=== PATIENT | male | born 1945 | race Caucasian/White ===

== ENCOUNTER 2018-12-06 16:05 | Emergency (ER) | payer MEDICAID, MEDICARE ==
[2018-12-06] MEDS ORDERED: DIPHTH/TETANUS/ACEL. PERTUSSIS IM ONE (16:10)
--- NOTE | 2018-12-06 16:16 | ER Report ---
History and Physical Time Seen By MD: 16:04 Hx. of Stated Complaint: FALL HPI/ROS CHIEF COMPLAINT: Fell HISTORY OF PRESENT ILLNESS: Pt had been walking in town and was stumbling and witness states that they say him fall off the sidewalk and hit his head on the asphault. No Known loc. Police and ems were called. Pt was repetitive to police and was suggested to go to the hospital. Pt on ed arrival is in a collar. Pt c/o had hematoma to back of his head and skin tears to left elbow. Pt does not know his last tetnus shot. Pt is on 3 medications but states "i dont know what they are or what they are for". Pt has etoh on breath. Pt states he had 3 drinks "i am not drunk". Pt does c/o of some left shoulder pain but states that is chronic. Pt denies any headache. no numbness. REVIEW OF SYSTEMS: Constitutional: No fever, no chills. Eyes: No discharge. ENT: No sore throat. Cardiovascular: No chest pain, no palpitations. Respiratory: No cough, no shortness of breath. Gastrointestinal: No abdominal pain, no vomiting. Genitourinary: No hematuria. Musculoskeletal: No back pain, + shoulder Skin: No rashes. + hematoma back of head; + skin tear left elbow Neurological: No headache. Past Medical/Surgical History Pmhx: unknown Pshx: unknown Unable To Obtain Past Medical: Unable to Obtain/Update Hx Smoking: No Hx Alcohol Use: Yes Constitutional Vital Sign - Last 24 Hours 12/06/18 12/06/18 12/06/18 12/06/18 16:11 16:12 17:19 17:30 Pulse 87 Resp 18 B/P (MAP) 127/80 127/80 (96) 137/79 (98) 116/71 (86) Pulse Ox 95 12/06/18 12/06/18 12/06/18 17:35 17:40 17:45 Pulse 84 97 B/P (MAP) 116/92 (100) Pulse Ox 95 95 Physical Exam General Appearance: The patient is alert, has no immediate need for airway protection and no signs of toxicity. Eyes: Pupils equal and round no pallor or injection, EOMI ENT: no pharyngeal erythema or exudates, Mucous membranes are moist, TM are nl b/l, neg hemotympanums Respiratory: There are no retractions, lungs are clear to auscultation. Cardiovascular: Regular rate and rhythm. pulses are equal and symmetrical Gastrointestinal: Abdomen is soft and non tender, no masses, bowel sounds apolinar l, no guarding, no rigidity or rebound Neurological: Cranial nerves II-XII grossly intact, no sensory or motor loss Skin: Warm and dry, + hematoma on back of head with dried blood; + 3 skin tears to left elbow 1cm each. Musculoskeletal: Neck is in cervical collar, no vertebral tenderness distal to c ervical spine Extremities are nontender, nonswollen and have full range of motion. DIFFERENTIAL DIAGNOSIS: After history and physical exam differential diagnosis was considered for left shoulder fx, contusion, elbow contusion, concussion, closed head injury, intracranial bleed Medical Decision Making Data Points Result Diagram: 12/06/18 1615 12/06/18 1615 Laboratory Hematology Test 12/06/18 16:15 Red Blood Count 4.51 M/uL (4.00-5.60) Mean Corpuscular Volume 98.1 fL (80.0-96.0) Mean Corpuscular Hemoglobin 33.2 pg (26.0-33.0) Mean Corpuscular Hemoglobin Concent 33.9 g/dL (32.0-36.0) Red Cell Distribution Width 13.8 % (11.5-14.5) Mean Platelet Volume 7.2 fL (7.2-11.1) Neutrophils (%) (Auto) 49.5 % (39.4-72.5) Lymphocytes (%) (Auto) 37.4 % (17.6-49.6) Monocytes (%) (Auto) 11.0 % (4.1-12.4) Eosinophils (%) (Auto) 1.0 % (0.4-6.7) Basophils (%) (Auto) 1.1 % (0.3-1.4) Nucleated RBC Relative Count (auto) 0.0 /100WBC Neutrophils # (Auto) 3.4 K/uL (2.0-7.4) Lymphocytes # (Auto) 2.5 K/uL (1.3-3.6) Monocytes # (Auto) 0.7 K/uL (0.3-1.0) Eosinophils # (Auto) 0.1 K/uL (0.0-0.5) Basophils # (Auto) 0.1 K/uL (0.0-0.1) Nucleated RBC Absolute Count (auto) 0.00 K/uL Prothrombin Time 12.4 seconds (12.0-14.4) Prothromb Time International Ratio 0.92 Activated Partial Thromboplast Time 29 seconds (23-35) Sodium Level 136 mmol/L (137-145) Potassium Level 4.2 mmol/L (3.5-5.0) Chloride Level 101 mmol/L (98-107) Carbon Dioxide Level 24 mmol/L (22-30) Blood Urea Nitrogen 6 mg/dl (9-21) Creatinine 0.60 mg/dl (0.66-1.25) Glomerular Filtration Rate Calc > 60.0 Random Glucose 104 mg/dl (75-110) Calcium Level 9.0 mg/dl (8.4-10.2) Total Bilirubin 0.5 mg/dl (0.2-1.3) Aspartate Amino Transf (AST/SGOT) 211 U/L (0-35) Alanine Aminotransferase (ALT/SGPT) 108 U/L (0-56) Alkaline Phosphatase 99 U/L (0-126) Total Protein 7.3 g/dl (6.3-8.2) Albumin 4.4 g/dl (3.5-5.0) Serum Alcohol 270 mg/dl Chemistry Test 12/06/18 16:15 White Blood Count 6.8 k/uL (4.5-11.0) Red Blood Count 4.51 M/uL (4.00-5.60) Hemoglobin 15.0 g/dL (14.0-18.0) Hematocrit 44.2 % (42.0-52.0) Mean Corpuscular Volume 98.1 fL (80.0-96.0) Mean Corpuscular Hemoglobin 33.2 pg (26.0-33.0) Mean Corpuscular Hemoglobin Concent 33.9 g/dL (32.0-36.0) Red Cell Distribution Width 13.8 % (11.5-14.5) Platelet Count 157 K/uL (150-450) Mean Platelet Volume 7.2 fL (7.2-11.1) Neutrophils (%) (Auto) 49.5 % (39.4-72.5) Lymphocytes (%) (Auto) 37.4 % (17.6-49.6) Monocytes (%) (Auto) 11.0 % (4.1-12.4) Eosinophils (%) (Auto) 1.0 % (0.4-6.7) Basophils (%) (Auto) 1.1 % (0.3-1.4) Nucleated RBC Relative Count (auto) 0.0 /100WBC Neutrophils # (Auto) 3.4 K/uL (2.0-7.4) Lymphocytes # (Auto) 2.5 K/uL (1.3-3.6) Monocytes # (Auto) 0.7 K/uL (0.3-1.0) Eosinophils # (Auto) 0.1 K/uL (0.0-0.5) Basophils # (Auto) 0.1 K/uL (0.0-0.1) Nucleated RBC Absolute Count (auto) 0.00 K/uL Prothrombin Time 12.4 seconds (12.0-14.4) Prothromb Time International Ratio 0.92 Activated Partial Thromboplast Time 29 seconds (23-35) Glomerular Filtration Rate Calc > 60.0 Calcium Level 9.0 mg/dl (8.4-10.2) Total Bilirubin 0.5 mg/dl (0.2-1.3) Aspartate Amino Transf (AST/SGOT) 211 U/L (0-35) Alanine Aminotransferase (ALT/SGPT) 108 U/L (0-56) Alkaline Phosphatase 99 U/L (0-126) Total Protein 7.3 g/dl (6.3-8.2) Albumin 4.4 g/dl (3.5-5.0) Serum Alcohol 270 mg/dl Coagulation Test 12/06/18 16:15 Prothrombin Time 12.4 seconds Prothromb Time International Ratio 0.92 Activated Partial Thromboplast Time 29 seconds Toxicology Test 12/06/18 16:15 Serum Alcohol 270 mg/dl EKG/Imaging Imaging see reports ED Course/Re-evaluation Clinical Indication for ER IV: Hydration, IV Access ED Course check labs/CT and xray 12/06/2018 5:16:24 pm [facility] called with CT of head results: Pt with positive head bleed that is a mix of subarachnoid and subdural wtih a skull fx. It has not been dictated but I spoke to the patient and let him know that I need to send to [place]. Will speak to [facility] first due to trauma fall but will see if that is appropriate vs [place]. Pt did states that the three meds he takes are over the counter. PT now believes one is an aspirin but not sure. Will start DDAVP now and also ancef for the open skull fracture. 12/06/2018 5:28:[address] Kerr, trauma surgeon at [facility] who accepts. Asked for a disc in addition to the "push" of images. 12/06/2018 5:41:59 pm PTs family has arrived and is aware of the two head bleeds and skull fracture. They all understand need to fly. Helicopter will be here in 20 minutes Decision to Disposition Date: December 06, 2018 Decision to Disposition Time: 17:42 Critical Care Time I spent a total of 30 minutes of critical care time in obtaining history, performing a physical exam, bedside monitoring of interventions, collecting and interpreting tests and discussion with consultants but not including time spent performing procedures. Depart Departure Latest Vital Signs Vital Signs Date Time Temp Pulse Resp B/P (MAP) Pulse Ox O2 Delivery O2 Flow Rate FiO2 12/06/18 17:45 97 95 12/06/18 17:40 116/92 (100) 12/06/18 16:11 18 Impression: Primary Impression: Subarachnoid bleed Additional Impressions: Subdural bleeding Skull fracture Alcohol intoxication Condition: Condition Unchanged Disposition: XFER TO [facility] Problem Qualifiers Additional Impressions: Skull fracture Encounter type: initial encounter Skull bone/location: occipital bone Fr acture type: open Occipital fracture type: unspecified fracture of occiput Laterality: unspecified laterality Qualified Codes: S02.119B - Unspecified fracture of occiput, initial encounter for open fracture Alcohol intoxication Complication of substance-induced condition: uncomplicated Qualified Codes: F10.920 - Alcohol use, unspecified with intoxication, uncomplicated NICHOLAS SAUNDERS DO December 06, 2018 16:16
[2018-12-06 16:29] LABS: PLATELET COUNT, AUTOMATED 157 K/uL (150-450)
[2018-12-06 16:40] LABS: INR 0.92
--- NOTE | 2018-12-06 17:14 | RADIOLOGY IMAGING REPORT ---
FACILITY: PATIENT NAME: Clarke John : 1945 MR: [id number] V: [id number] EXAM DATE: ORDERING PHYSICIAN: NICHOLAS SAUNDERS [place]CHN[place] [facility] [place] : 1945 Visit/Account:[id number] Date of Sevice: 12/06/2018 SHOULDER MIN 2 VIEWS LEFT COMPARISON: None. HISTORY: fell off sidewalk and landed on shoulder/elbow TECHNIQUE: 3 views of the left shoulder were obtained FINDINGS: BONES: Mild undersurface spurring of the distal clavicle at the AC joint which is not appreciably wi dened. Unremarkable glenohumeral joint. No acute fracture or subluxation. Visualized left ribs are intact SOFT TISSUES: Negative. No visible soft tissue swelling. EFFUSION: None suggested. OTHER: Negative. IMPRESSION: Mild left AC joint osteoarthritis without acute fracture or malalignment in the left shoulder. Report Dictated By: Carlos Cortez at 12/06/2018 5:06 PM Report E-Signed By: Carlos Cortez at 12/06/2018 5:08 PM WSN:[id number]
--- NOTE | 2018-12-06 17:16 | RADIOLOGY IMAGING REPORT ---
FACILITY: [facility] [place] PATIENT NAME: Clarke John : 1945 MR: [id number] V: [id number] EXAM DATE: ORDERING PHYSICIAN: NICHOLAS SAUNDERS TECHNOLOGIST: Location: [facility] Patient: Clarke John : 1945 Visit/Account:[id number] Date of Sevice: 12/06/2018 ELBOW 3 VIEW LEFT COMPARISON: None. HISTORY: fell off sidewalk and landed on shoulder/elbow TECHNIQUE: 3 views of the left elbow FINDINGS: BONES: No significant arthropathy, fracture, malalignment, or significant osseous lesion. Elbow ali gnment is within normal limits. SOFT TISSUES: Small chronic calcifications in the projection of the common extensor tendon origin wh ich could be due to chronic lateral epicondylitis but these are nonspecific. No visible soft tissue swelling. EFFUSION: No significant distal humeral fat pad displacement to suggest the presence of a joint effu danica. OTHER: Negative. IMPRESSION: No acute fracture or malalignment in the left elbow. Report Dictated By: Carlos Cortez at 12/06/2018 5:08 PM Report E-Signed By: Carlos Cortez at 12/06/2018 5:09 PM WSN:[id number]
[2018-12-06] MEDS ORDERED: NS 0.9% IVPB ONE (17:20)
[2018-12-06] MEDS ORDERED: ceFAZolin(*) 2GM/D5W 50ML 50 ML IVPB ONE (17:20)
[2018-12-06] MEDS ORDERED: DESMOPRESSIN ACET IVPB ONE (17:20)
--- NOTE | 2018-12-06 17:27 | RADIOLOGY IMAGING REPORT ---
FACILITY: [facility] PATIENT NAME: Clarke John : 1945 MR: [id number] V: [id number] EXAM DATE: ORDERING PHYSICIAN: NICHOLAS SAUNDERS TECHNOLOGIST: [place] [facility] [place]: Clarke John : 1945 Visit/Account:[id number] Date of Sevice: 12/06/2018 CT BRAIN NO CONTRAST HISTORY: fell off the sidewalk and hit head COMPARISON STUDIES: None. TECHNIQUE: Contiguous axial images were obtained from the skull base to the vertex. One of the following dose optimization techniques was utilized in the performance of this exam: Autom ated exposure control; adjustment of the mA and/or kV according to the patient's size; or use of an i terative reconstruction technique. Specific details can be referenced in the facility's radiology C T exam operational policy. FINDINGS: Hemorrhage: There is extensive hemorrhage throughout the anterior brain. There is blood in the supras ellar cistern that extends into subarachnoid spaces of the right and left frontal lobes and into the sylvian fissure. There is blood in the interhemispheric fissure. Subdural blood is noted in the right frontal lobe and right parietal region. The findings could be related to a ruptured Whittaker aneurysm o r related to the patient's fall. Ventricles / sulci / fissures: There is no intraventricular blood. Mild enlargement of the ventricles and sulci is related to diffuse cerebral atrophy. Masses / midline shift: There is no midline shift at this time. White matter and flores matter: Minimal small vessel white matter ischemic changes. Extra-axial spaces: 70-year-old hematomas and subarachnoid blood as described above. Bones/skull base: There is a nondisplaced occipital fracture that extends into the foramen magnum on the right side. Visualized mastoid air cells / paranasal sinuses: There is opacification of the right maxillary sinus with central high density related to calcified secretions. This would suggest acute and/or chronic s inusitis. There is an air-fluid level in the left maxillary sinus with mucosal thickening suggesting acute sinusitis superimposed upon chronic mucosal disease. There is an air-fluid level in the left sp henoid sinus suggesting acute sinusitis. No facial fractures are seen and the findings are probably n ot related to the patient's recent trauma. Scalp and soft tissues: There is a prominent scalp hematoma over the left occipital bone Vascular/other findings: There is evidence chronic calcification of the internal carotid arteries alia aterally. IMPRESSION: 1. Extensive subarachnoid blood in the anterior part of the brain involving the interhemispheric fiss ure, the suprasellar cistern, numerous sulci and the sylvian fissures bilaterally. 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 Alternatively blood blood could be related to the patient's recent fall. 2. There is subdural blood in the right frontal lobe, right parietal lobe and left middle cranial fos sa. 3. There is a scalp hematoma posteriorly and there is a nondisplaced right occipital bone fracture th at extends into the right foramen magnum. 4. Right maxillary sinus mucosal disease with calcified secretions suggesting acute and/or chronic si nusitis. Probable acute and chronic sinusitis involving the left maxillary sinus and left sphenoid si nus. Results were called to NICHOLAS SAUNDERS M.D. At 12/06/2018 5:21 PM. Report Dictated By: Maikol Braun MD at 12/06/2018 5:00 PM Report E-Signed By: Maikol Braun MD at 12/06/2018 5:22 PM WSN:[id number]
--- NOTE | 2018-12-06 17:46 | RADIOLOGY IMAGING REPORT ---
FACILITY: [facility] PATIENT NAME: Sloan Jonh : 1945 MR: [id number] V: [id number] EXAM DATE: [id number] ORDERING PHYSICIAN: NICHOLAS SAUNDERS TECHNOLOGIST: Location: [facility] [place] Patient: Sloan John : 1945 Visit/Account:[id number] Date of Sevice: 12/06/2018 CT VERTEBRA CERVICAL (NON CON) EXAMINATION: CT Cervical spine without intravenous contrast HISTORY: Status post fall. Occipital bone fracture. Evaluate neck. COMPARISON: CT head December 06, 2018. TECHNIQUE: Axial images were obtained from the skull base through the upper thoracic spine without I V contrast administration. Coronal and sagittal reformatted images were obtained from the axial [facility] e data. One of the following dose optimization techniques was utilized in the performance of this exam: Autom ated exposure control; adjustment of the mA and/or kV according to the patient's size; or use of an i terative reconstruction technique. Specific details can be referenced in the facility's radiology C T exam operational policy. FINDINGS: Alignment: Cervical spine has normal lordotic curvature. There is no spondylolisthesis. Vertebral bodies: There is no vertebral body fracture. There is no fracture involving the dens or C1. Posterior elements: There are no fractures involving posterior elements. There are facet degenerative changes most prominent at C7-T1. Ligaments: There is ligamentous calcification involving the cruciate ligament. This could represent c hondrocalcinosis. Disc Spaces: Discogenic degenerative changes in the mid cervical spine are most prominent at C6-7. Sinuses and face: There is an air-fluid level in the sphenoid sinus. The maxillary sinuses are unrema rkable. There is a right occipital bone fracture that extends into the foramen magnum on the right si de. Sinus disease discussed on his CT scan is not seen. There is no facial fractures seen. Soft tissues: There is a scalp hematoma posteriorly. Visualized upper chest: Negative. IMPRESSION: 1. No findings of a fracture involving the cervical spine. There are discogenic degenerative changes at C6-7 and there are facet degenerative changes at C7-T1. 2. 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 3. Left sphenoid sinus air-fluid level probably representing acute sinusitis. Report Dictated By: Maikol Braun MD at 12/06/2018 5:22 PM Report E-Signed By: Maikol Braun MD at 12/06/2018 5:41 PM WSN:[id number]
[2018-12-06] MEDS ORDERED: KETAMINE HCL-NS 50 MG/5 ML SYR ONE ×2 (18:09→18:17)
[2018-12-06] MEDS ORDERED: KETAMINE HCL-NS 50 MG/5 ML SYR IVP ONE ×2 (18:10→18:30)
[2018-12-06] MEDS ORDERED: LORazepam 2 MG/ML VIAL ONE (18:25)
[2018-12-06 18:27] VITALS: BP 159/90
== END 2018-12-06 18:50 | disposition short-term general hospital (02) ==
LOC: EDBD 16:13 → ER 16:13
DX: S06.6X9A Traumatic subarachnoid hemorrhage with loss of consciousness of unspecified duration, initial encounter (principal); S06.5X9A Traumatic subdural hemorrhage with loss of consciousness of unspecified duration, initial encounter; S02.119B Unspecified fracture of occiput, initial encounter for open fracture; F10.920 Alcohol use, unspecified with intoxication, uncomplicated; W01.198A Fall on same level from slipping, tripping and stumbling with subsequent striking against other object, initial encounter
CPT/HCPCS: 70450; 72125; 73030; 73080; 85025; 85610; 85730; 90471; 90715; 96365; 96368; 99291; G0480; J2597; J3490; J7050; 80320; 82040; 82247; 82310; 82374; 82435; 82565; 82947; 84075; 84132; 84155; 84295; 84450; 84460; 84520; J0690

== ENCOUNTER → 2018-12-06 | Outpatient (CLI) | payer MEDICARE | LOC: AMB 15:44 | PROVIDERS: ATTEND Nurse Practitioner | DX: R41.82 Altered mental status, unspecified (principal); R51 Headache; F41.9 Anxiety disorder, unspecified; S00.03XA Contusion of scalp, initial encounter; W18.30XA Fall on same level, unspecified, initial encounter; F10.129 Alcohol abuse with intoxication, unspecified | CPT/HCPCS: A0425; A0429 ==

== ENCOUNTER → 2018-12-06 | Outpatient (CLI) | payer MEDICARE | LOC: AMB 17:56 | PROVIDERS: ATTEND Nurse Practitioner | DX: Z02.9 Encounter for administrative examinations, unspecified (principal) ==